=== PATIENT | female | born 1950 ===

== ENCOUNTER 2017-10-14 09:56 | Observation (INO) | payer OTHER, MEDICARE ==
--- NOTE | 2017-10-14 10:25 | EDPHY ---
H & P Stated Complaint: Pain in R lower leg/ankle x 1 wk;thinks it's her varicose veins Time Seen by Provider: 10/14/17 10:16 HPI/ROS: CHIEF COMPLAINT: Right leg pain and swelling HISTORY OF PRESENT ILLNESS: The patient is a 67-year-old female who comes to the emergency department complaining of right leg pain and swelling around the ankle. She 1st noticed some swelling on that side 1 week ago and saw her primary doctor Siva on Saturday. They decided to continue to monitor her symptoms. The patient states that it is got more swollen and more painful and is now erythematous. That is tender to the touch. It is slightly warm. She has a small abrasion on her webber. REVIEW OF SYSTEMS: Constitutional: denies: chills, fever, recent illness, recent injury EENTM: denies: blurred vision, double vision, nose congestion Respiratory: denies: cough, shortness of breath Cardiac: denies: chest pain, irregular heart rate, lightheadedness, palpitations Gastrointestinal/Abdominal: denies: abdominal pain, diarrhea, nausea, vomiting, blood streaked stools Genitourinary: denies: dysuria, frequency, hematuria, pain Musculoskeletal: See HPI Skin: See HPI Neurological: denies: headache, numbness, paresthesia, tingling, dizziness, weakness Hematologic/Lymphatic: denies: blood clots, easy bleeding, easy bruising Immunologic/allergic: denies: HIV/AIDS, transplant EXAM: GENERAL: Well-appearing, well-nourished and in no acute distress. HEAD: Atraumatic, normocephalic. EYES: Pupils equal round and reactive to light, extraocular movements intact, sclera anicteric, conjunctiva are normal. ENT: TMs normal, nares patent, oropharynx clear without exudates. Moist mucous membranes. NECK: Normal range of motion, supple without lymphadenopathy or JVD. LUNGS: Breath sounds clear to auscultation bilaterally and equal. No wheezes rales or rhonchi. HEART: Regular rate and rhythm without murmurs, rubs or gallops. ABDOMEN: Soft, nontender, normoactive bowel sounds. No guarding, no rebound. No masses appreciated. BACK: No CVA tenderness, no spinal tenderness, step-offs or deformities EXTREMITIES: 2+ edema right lower extremity, mild erythema and warmth consistent with venous insufficiency versus mild cellulitis NEUROLOGICAL: Cranial nerves II through XII grossly intact. Normal speech, normal gait. 5/5 strength, normal movement in all extremities, normal sensation PSYCH: Normal mood, normal affect. SKIN: See above Source: Patient Exam Limitations: No limitations - Personal History Current Tetanus Diphtheria and Acellular Pertussis (TDAP): Yes - Medical/Surgical History Hx Asthma: No Hx Chronic Respiratory Disease: No Hx Diabetes: No Hx Cardiac Disease: No Hx Renal Disease: No Hx Cirrhosis: No Hx Alcoholism: No Other PMH: varicose veins, "bad liver" - Family History Significant Family History: No pertinent family hx - Social History Smoking Status: Former smoker Alcohol Use: Sober Drug Use: None Constitutional: Initial Vital Signs Temperature (C) 37.2 C 10/14/17 09:58 Heart Rate 91 10/14/17 09:58 Respiratory Rate 18 10/14/17 09:58 Blood Pressure 132/80 H 10/14/17 09:58 O2 Sat (%) 94 10/14/17 09:58 O2 Delivery Mode Room Air Allergies/Adverse Reactions: nitrofurantoin [From Macrobid] Allergy (Intermediate, Verified 10/14/17 10:06) "gives me a really high temp" bacitracin [From Neosporin] Allergy (Mild, Verified 10/14/17 10:06) Rash bacitracin zinc [From Neosporin] Allergy (Mild, Verified 10/14/17 10:06) Rash benzalkonium chloride [From Neosporin] Allergy (Mild, Verified 10/14/17 10:06) Rash gramicidin D [From Neosporin] Allergy (Mild, Verified 10/14/17 10:06) Rash neomycin sulfate [From Neosporin] Allergy (Mild, Verified 10/14/17 10:06) Rash polymyxin B [From Neosporin] Allergy (Mild, Verified 10/14/17 10:06) Rash polymyxin B sulfate [From Neosporin] Allergy (Mild, Verified 10/14/17 10:06) Rash nitrofurantoin macrocrystalline [From Macrobid] Allergy (Verified 10/14/17 10:06 ) "gives me a really high temp" Home Medications: Medication Instructions Recorded Ursodiol [Actigall 300MG (*)] 1,200 mg PO DAILY 03/03/12 Diazepam [Valium 5 MG (*)] 5 mg PO DAILY PRN 10/14/17 Ferrous Sulfate [Ferrous Sulf 325 325 mg PO DAILY 10/14/17 MG (*)] Herbals/Supplements -Info Only 1 ea PO DAILY 10/14/17 Ranitidine HCl [Zantac] 300 mg PO DAILY PRN 10/14/17 buPROPion SR [Wellbutrin 150mg SR 150 mg PO DAILY 10/14/17 (*)] oxyCODONE IR [Oxycodone Ir (*)] 7.5 mg PO Q4HRS PRN 10/14/17 Medical Decision Making - Diagnostics Imaging Results: Imaging Impressions Extremity Venous Study 10/14/17 10:22 Impression: There is no sonographic evidence of deep or superficial vein thrombosis in the right lower extremity. Findings were discussed with GAGE BRUCE MD at 11:06 AM, on 10/14/2017. Imaging: Discussed imaging studies w/ conveyor man Radiologist ED Course/Re-evaluation: 11:20 a.m. I discussed the case with Nereida who will admit to the medical service requests cefazolin. The patient and friend agree with this plan. The patient does not have sepsis. Chemistry still pending. Differential Diagnosis: Partial list of the Differential diagnosis considered include but were not limited to; cellulitis, DVT and although unlikely based on the history and physical exam, I also considered injury, ischemia. - Data Points Laboratory Results: Laboratory Results 10/14/17 10:35 10/14/17 10:35 10/14/17 10/14/17 10/14/17 10:35 10:35 10:35 WBC 4.70 10^3/uL 10^3/uL (3.80-9.50) RBC 3.88 10^6/uL L 10^6/uL (4.18-5.33) Hgb 12.1 g/dL L g/dL (12.6-16.3) Hct 36.2 % L % (38.0-47.0) MCV 93.3 fL fL (81.5-99.8) MCH 31.2 pg pg (27.9-34.1) MCHC 33.4 g/dL g/dL (32.4-36.7) RDW 13.2 % % (11.5-15.2) Plt Count 98 10^3/uL L 10^3/uL (150-400) MPV 12.1 fL H fL (8.7-11.7) Neut % (Auto) 79.2 % H % (39.3-74.2) Lymph % (Auto) 9.6 % L % (15.0-45.0) [place] % (Auto) 10.2 % % (4.5-13.0) Eos % (Auto) 0.6 % % (0.6-7.6) Baso % (Auto) 0.2 % L % (0.3-1.7) Nucleat RBC Rel Count 0.0 % % (0.0-0.2) Absolute Neuts (auto) 3.72 10^3/uL 10^3/uL (1.70-6.50) Absolute Lymphs (auto) 0.45 10^3/uL L 10^3/uL (1.00-3.00) Absolute Monos (auto) 0.48 10^3/uL 10^3/uL (0.30-0.80) Absolute Eos (auto) 0.03 10^3/uL 10^3/uL (0.03-0.40) Absolute Basos (auto) 0.01 10^3/uL L 10^3/uL (0.02-0.10) Absolute Nucleated RBC 0.00 10^3/uL 10^3/uL (0-0.01) Immature Gran % 0.2 % % (0.0-1.1) Immature Gran # 0.01 10^3/uL 10^3/uL (0.00-0.10) PT 14.6 SEC SEC (12.0-15.0) INR 1.12 (0.83-1.16) APTT 24.4 SEC SEC (23.0-38.0) VBG Lactic Acid 1.0 mmol/L mmol/L (0.7-2.1) Sodium Potassium Chloride Carbon Dioxide Anion Gap BUN Creatinine Estimated GFR Glucose Calcium Total Bilirubin 10/14/17 10:35 WBC RBC Hgb Hct MCV MCH MCHC RDW Plt Count MPV Neut % (Auto) Lymph % (Auto) [place] % (Auto) Eos % (Auto) Baso % (Auto) Nucleat RBC Rel Count Absolute Neuts (auto) Absolute Lymphs (auto) Absolute Monos (auto) Absolute Eos (auto) Absolute Basos (auto) Absolute Nucleated RBC Immature Gran % Immature Gran # PT INR APTT VBG Lactic Acid Sodium 138 mEq/L mEq/L (134-144) Potassium 3.4 mEq/L L mEq/L (3.5-5.2) Chloride 100 mEq/L mEq/L (97-110) Carbon Dioxide 26 mEq/l mEq/l (22-31) Anion Gap 12 mEq/L mEq/L (8-16) BUN 8 mg/dL mg/dL (7-23) Creatinine 0.6 mg/dL mg/dL (0.6-1.0) Estimated GFR > 60 Glucose 109 mg/dL H mg/dL (70-100) Calcium 8.4 mg/dL L mg/dL (8.5-10.4) Total Bilirubin 1.2 mg/dL mg/dL (0.1-1.4) Medications Given: Discontinued Medications Hydromorphone HCl (Dilaudid) 0.5 mg IVP EDNOW ONE Stop: 10/14/17 11:17 Last Admin: 10/14/17 11:21 Dose: 0.5 mg Cefazolin Sodium/Dextrose (Ancef 1 Gm (Premix)) 50 mls @ 200 mls/hr IV EDNOW ONE PRN Reason: Protocol Stop: 10/14/17 11:33 Last Admin: 10/14/17 11:24 Dose: 50 mls Oxycodone HCl (Oxycodone Ir) 10 mg PO EDNOW ONE Stop: 10/14/17 11:46 Last Admin: 10/14/17 11:49 Dose: 10 mg Departure - Departure Disposition: [facility] Acute Clinical Impression: Cellulitis Qualifiers: Site of cellulitis: extremity Site of cellulitis of extremity: lower extremity Laterality: right Qualified Code(s): L03.115 - Cellulitis of right lower limb Condition: Fair
[2017-10-14 10:53] LABS: % IMMATURE GRANULYOCYTES 0.2 % (0.0-1.1); ABSOLUTE IMMATURE GRANULOCYTES 0.01 10^3/uL (0.00-0.10); ADD DIFF? NO; ADD MORPH? NO; ADD SCAN? NO; ATYPICAL LYMPHOCYTE FLAG 10 (0-99); FRAGMENT RBC FLAG 0 (0-99); HEMATOCRIT 36.2 % (38.0-47.0); HEMOGLOBIN 12.1 g/dL (12.6-16.3); LEFT SHIFT FLG 0 (0-99); LIPEMIA HEMOLYSIS FLAG 80 (0-99); MEAN CELL HEMOGLOBIN 31.2 pg (27.9-34.1); MEAN CELL HEMOGLOBIN CONCENTR. 33.4 g/dL (32.4-36.7); MEAN CELL VOLUME 93.3 fL (81.5-99.8); MEAN PLATELET VOLUME 12.1 fL (8.7-11.7); PLATELET CLUMPS FLAG 0 (0-99); PLATELET COUNT 98 10^3/uL (150-400); RED BLOOD CELL COUNT 3.88 10^6/uL (4.18-5.33); RED CELL DISTRIBUTION WIDTH 13.2 % (11.5-15.2)
[2017-10-14 11:03] LABS: APTT 24.4 SEC (23.0-38.0); INR 1.12 (0.83-1.16); PROTIME(PATIENT) 14.6 SEC (12.0-15.0)
[2017-10-14] MEDS ORDERED: HYDROmorphONE/DILAUDID 1 MG/ML INJ IVP ONE (11:16)
[2017-10-14 11:27] LABS: ANION GAP 12 mEq/L (8-16); BILIRUBIN,TOTAL 1.2 mg/dL (0.1-1.4); CALCIUM 8.4 mg/dL (8.5-10.4); CARBON DIOXIDE 26 mEq/l (22-31); CHLORIDE 100 mEq/L (97-110); CREATININE 0.6 mg/dL (0.6-1.0); GLOMERULAR FILTRATION RATE > 60; GLUCOSE 109 mg/dL (70-100); POTASSIUM 3.4 mEq/L (3.5-5.2); SODIUM 138 mEq/L (134-144)
[2017-10-14] MEDS ORDERED: oxyCODONE IR 5 MG TAB PO ONE (11:45)
[2017-10-14] MEDS ORDERED: DIAZEPAM 5 MG TAB PO PRN (13:24)
[2017-10-14] MEDS ORDERED: POTASSIUM CL 20 MEQ TAB PO ONE ×2 (13:25→18:00)
[2017-10-14] MEDS ORDERED: ONDANSETRON DISINTEGRATING 4 MG TAB PO PRN (13:34)
[2017-10-14] MEDS ORDERED: ONDANSETRON 4 MG/2 ML VIAL IVP PRN (13:34)
[2017-10-14] MEDS ORDERED: ACETAMINOPHEN 325 MG TAB PO PRN (13:34)
[2017-10-14] MEDS ORDERED: HYDROmorphONE/DILAUDID 1 MG/ML INJ IVP PRN (13:34)
[2017-10-14] MEDS ORDERED: HYDROmorphone HCL/NS/PF 0.4 MG/2 ML SYR IVP PRN (13:55)
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
[2017-10-14 15:33] LABS: ALBUMIN 3.2 g/dL (3.5-5.0); BILIRUBIN,TOTAL 1.1 mg/dL (0.1-1.4); BILIRUBIN-CONJUGATED 0.3 mg/dL (0.0-0.5); BILIRUBIN-UNCONJUGATED 0.8 mg/dL (0.0-1.1); TOTAL PROTEIN 5.7 g/dL (6.3-8.2)
[2017-10-14] MEDS: oxyCODONE IR 15 MG TAB PO PRN ×2 (15:51→20:56)
[2017-10-14] MEDS: ceFAZolin 2 GM/DEXTROSE 100 ML IV SCH ×2 (15:52→20:56)
[2017-10-14 23:40] LABS: COLOR YELLOW; LEUKOCYTE ESTERASE,URINE 3+ (NEGATIVE); NITRITE,URINE NEGATIVE (NEGATIVE)
[2017-10-14 23:47] LABS: RBC,URINE 15-25 /hpf (0-3); WBC,URINE 50-182 /hpf (0-3); YEAST PRESENT /hpf (NONE SEEN)
[2017-10-15] MEDS: ceFAZolin 2 GM/DEXTROSE 100 ML IV SCH ×2 (05:55→14:38)
[2017-10-15 06:02] LABS: % IMMATURE GRANULYOCYTES 0.9 % (0.0-1.1); ABSOLUTE IMMATURE GRANULOCYTES 0.03 10^3/uL (0.00-0.10); ADD DIFF? NO; ADD MORPH? NO; ADD SCAN? NO; ATYPICAL LYMPHOCYTE FLAG 10 (0-99); FRAGMENT RBC FLAG 0 (0-99); HEMATOCRIT 31.6 % (38.0-47.0); HEMOGLOBIN 10.5 g/dL (12.6-16.3); LEFT SHIFT FLG 0 (0-99); LIPEMIA HEMOLYSIS FLAG 80 (0-99); MEAN CELL HEMOGLOBIN 31.2 pg (27.9-34.1); MEAN CELL HEMOGLOBIN CONCENTR. 33.2 g/dL (32.4-36.7); MEAN CELL VOLUME 93.8 fL (81.5-99.8); PLATELET CLUMPS FLAG 0 (0-99); PLATELET COUNT 90 10^3/uL (150-400); RED BLOOD CELL COUNT 3.37 10^6/uL (4.18-5.33); RED CELL DISTRIBUTION WIDTH 13.3 % (11.5-15.2)
[2017-10-15 06:16] LABS: ALANINE AMINOTRANSFERASE 28 IU/L (9-52); ALBUMIN 2.6 g/dL (3.5-5.0); ALKALINE PHOSPHATASE 133 IU/L (38-126); ANION GAP 7 mEq/L (8-16); ASPARTATE AMINOTRANSFERASE 21 IU/L (14-46); BILIRUBIN,TOTAL 0.5 mg/dL (0.1-1.4); CARBON DIOXIDE 28 mEq/l (22-31); CHLORIDE 103 mEq/L (97-110); CREATININE 0.6 mg/dL (0.6-1.0); GLOMERULAR FILTRATION RATE > 60; GLUCOSE 85 mg/dL (70-100); POTASSIUM 3.5 mEq/L (3.5-5.2); SODIUM 138 mEq/L (134-144); TOTAL PROTEIN 4.7 g/dL (6.3-8.2)
[2017-10-15 08:10] VITALS: BP 124/73; PULSE 93; RESP 19; TEMP 97.9; O2SAT 91
[2017-10-15] MEDS: oxyCODONE IR 15 MG TAB PO PRN ×2 (08:32→13:16)
[2017-10-15] MEDS ORDERED: FAMOTIDINE 20 MG TAB PO PRN (09:00)
[2017-10-15] MEDS ORDERED: URSODIOL 300 MG CAP PO SCH (09:00)
[2017-10-15] MEDS ORDERED: buPROPion SR 150 MG TAB PO SCH (09:00)
[2017-10-15] MEDS ORDERED: FERROUS SULFATE 325 MG TAB PO SCH (09:00)
--- NOTE | 2017-10-15 16:33 | ASMTCASEMG ---
Type Of Residence What kind of residence do Answers: House you live in? Case Management Evaluation Functional: Able to Answers: Yes return Home with Prior Level of Function/Care Discharge Plan Comments Coordination Status Comments Notes: Patient discharging home having been transitioned from IV antibiotics tto orals. Patient able to discharge home Independent with no additional Case management needs apparent at this time. Date Signed: 10/15/2017 04:33 PM Electronically Signed By:MITA Juárez
--- NOTE | 2017-10-15 18:19 | ASDISCHSUM ---
Discharge Information Plan Status:Home with No Needs Medically Cleared to Leave:10/14/2017 Discharge Date:10/15/2017 04:43 PM CM D/C Disposition:Home, Routine, Self-Care ADT D/C Disposition:Home, Routine, Self-Care Projected Discharge Date:10/15/2017 05:00 PM Transportation at D/C:Family Discharge Delay Reason: Follow-Up Date:10/15/2017 05:00 PM Discharge Slot: Final Diagnosis:Cellulitis Placement Information Patient Contact Information Contact Name:NPPTPT Relationship:Sister Address:[address] [facility] City:[place] Alternate Phone: State/Zip Code:[place] [address] Email: Financial Information Financial Class: Primary Plan Desc:MEDICARE OUTPATIENT Primary Plan Number:[id number] Secondary Plan Desc:[employer]/MDR SUPPLEMENT Secondary Plan Number:[id number] Assessment Information [facility] Initial CM Assessment Type Of Residence What kind of residence do Answers: House you live in? Case Management Evaluation Functional: Able to Answers: Yes return Home with Prior Level of Function/Care Discharge Plan Comments Coordination Status Comments Notes: Patient discharging home having been transitioned from IV antibiotics tto orals. Patient able to discharge home Independent with no additional Case management needs apparent at this time. Date Signed: 10/15/2017 04:33 PM Electronically Signed By:MITA Juárez Intervention Information
--- NOTE | 2017-10-16 02:14 | GDS ---
[f rep st] DISCHARGE SUMMARY DISCHARGE DIAGNOSES: 1. Right lower extremity cellulitis. 2. Primary biliary cirrhosis. 3. Chronic pain on chronic continuous opioids. 4. Hypokalemia, resolved. HISTORY: For details, please see dictated history and physical dated October 14, 2017. In brief, batsheva shepherd patient is a 67-year-old female with multiple medical problems, who presented to the emergency dep artment with 1 week of right ankle swelling. She was admitted to the hospital for IV antibiotics for cellulitis. HOSPITAL COURSE: Patient was admitted to the med/surg unit. She was treated with IV Ancef. The day, her condition had markedly improved with significant decrease in erythema and edema. She was ambulating safely. She has had no fevers and no leukocytosis. She is likely safe to transition to oral Keflex for continued outpatient treatment. DISPOSITION: Patient is discharged home in stable condition. FOLLOWUP: Dr. Kate Paniagua, primary care, in 2-3 days to recheck cellulitis. DISCHARGE MEDICATIONS: Please see [facility] for completed outpatient medication list. New medication s on discharge include Keflex 500 mg p.o. q.6 hours, #28, no refills. /[id number]/MODL
== END 2017-10-15 16:43 | disposition home or self-care (01) ==
LOC: F1N 12:15
PROVIDERS: ADMIT Student in an Organized Health Care Education/Training Program; ATTEND Hospitalist
DX: L03.115 Cellulitis of right lower limb (principal); K74.3 Primary biliary cirrhosis; G89.29 Other chronic pain; E87.6 Hypokalemia; F32.9 Major depressive disorder, single episode, unspecified; F41.9 Anxiety disorder, unspecified; K21.9 Gastro-esophageal reflux disease without esophagitis; H54.8 Legal blindness, as defined in USA; Z79.891 Long term (current) use of opiate analgesic; Z90.710 Acquired absence of both cervix and uterus
CPT/HCPCS: 93971; 97161; G0378; G8978; G8979; G8980; J0690; J1170; 96365

== ENCOUNTER 2017-10-25 17:15 | Emergency (ER) | payer OTHER, MEDICARE ==
--- NOTE | 2017-10-25 18:24 | EDPHY ---
H & P Stated Complaint: RIGHT LEG CELLULITIS NOT RESOLVING Time Seen by Provider: 10/25/17 18:04 HPI/ROS: CHIEF COMPLAINT: Ongoing right leg erythema HISTORY OF PRESENT ILLNESS: The patient presents to the ED for evaluation of ongoing mild right leg erythema. The patient was hospitalized approximately 2 weeks ago 1 day of IV antibiotics. She was discharged home with Keflex. At some point time Bactrim was added as an outpatient. She has been following up with her primary care provider. Given the presence of ongoing mild erythema and tenderness she was referred to the ED for further evaluation. She denies any fever. She denies any history of fall or trauma. The patient did have an unremarkable lower extremity ultrasound 10 days ago. REVIEW OF SYSTEMS: A comprehensive 10 point review of systems is otherwise negative aside from elements mentioned in the history of present illness. Source: Patient Exam Limitations: No limitations - Personal History Current Tetanus/Diphtheria Vaccine: Yes Current Tetanus Diphtheria and Acellular Pertussis (TDAP): Yes - Medical/Surgical History Hx Asthma: No Hx Chronic Respiratory Disease: No Hx Diabetes: No Hx Cardiac Disease: No Hx Renal Disease: No Hx Cirrhosis: No Hx Alcoholism: No Hx HIV/AIDS: No Hx Splenectomy or Spleen Trauma: No Other PMH: varicose veins, "bad liver (primary biliary cirrhosis; legally blind ; cataract surgery, again in October 2017; O2 at night, former smoker, 20 pack year history, CELLULITIS 10/20 - Social History Smoking Status: Former smoker - Physical Exam Exam: General Appearance: Alert, no distress Eyes: Pupils equal and round no pallor or injection ENT, Mouth: Mucous membranes moist Respiratory: There are no retractions, lungs are clear to auscultation Cardiovascular: Regular rate and rhythm Gastrointestinal: Abdomen is soft and nontender, no masses, bowel sounds normal Neurological: A&O, normal motor function, normal sensory exam, normal cranial nerves Skin: Mild erythematous changes noted right ankle improved from prior line of demarcation, mild tenderness to palpation along the ankle and foot Musculoskeletal: Neck is supple nontender Extremities: symmetrical, full range of motion Constitutional: Initial Vital Signs Temperature (C) 36.8 C 10/25/17 17:20 Heart Rate 89 10/25/17 17:20 Respiratory Rate 15 10/25/17 17:20 Blood Pressure 129/61 H 10/25/17 17:20 O2 Sat (%) 94 10/25/17 17:20 O2 Delivery Mode Room Air Allergies/Adverse Reactions: nitrofurantoin [From Macrobid] Allergy (Intermediate, Verified 10/25/17 17:18) "gives me a really high temp" bacitracin [From Neosporin] Allergy (Mild, Verified 10/25/17 17:18) Rash bacitracin zinc [From Neosporin] Allergy (Mild, Verified 10/25/17 17:18) Rash benzalkonium chloride [From Neosporin] Allergy (Mild, Verified 10/25/17 17:18) Rash gramicidin D [From Neosporin] Allergy (Mild, Verified 10/25/17 17:18) Rash neomycin sulfate [From Neosporin] Allergy (Mild, Verified 10/25/17 17:18) Rash polymyxin B [From Neosporin] Allergy (Mild, Verified 10/25/17 17:18) Rash polymyxin B sulfate [From Neosporin] Allergy (Mild, Verified 10/25/17 17:18) Rash nitrofurantoin macrocrystalline [From Macrobid] Allergy (Verified 10/25/17 17:18 ) "gives me a really high temp" Home Medications: Medication Instructions Recorded Ursodiol [Actigall 300MG (*)] 1,200 mg PO DAILY 03/03/12 Diazepam [Valium 5 MG (*)] 5 mg PO DAILY PRN 10/14/17 Ferrous Sulfate [Ferrous Sulf 325 325 mg PO DAILY 10/14/17 MG (*)] Herbals/Supplements -Info Only 1 ea PO DAILY 10/14/17 Ranitidine HCl [Zantac] 300 mg PO DAILY PRN 10/14/17 buPROPion SR [Wellbutrin 150mg SR 150 mg PO DAILY 10/14/17 (*)] oxyCODONE IR [Oxycodone Ir (*)] 7.5 mg PO Q4HRS PRN 10/14/17 Cephalexin [Keflex (*)] 500 mg PO Q6H #28 cap 10/15/17 Cephalexin [Keflex] 500 mg PO QID #28 cap 10/25/17 Medical Decision Making ED Course/Re-evaluation: The patient presents to the ED with mild persistent erythema while taking Keflex and Bactrim for mild cellulitis. The patient is nontoxic and well- appearing. She has no leukocytosis. She has a normal sed rate, CRP and pro- calcitonin level. At this point time I do not feel the patient needs to be admitted to the hospital. I would recommend that the patient continue her oral antibiotics as prescribed. The patient could certainly follow up with infectious disease at this point time for a recheck. Differential Diagnosis: Differential diagnosis considered includes cellulitis, septic arthritis, abscess - Data Points Laboratory Results: Laboratory Results 10/25/17 18:25 10/25/17 18:25 10/25/17 10/25/17 18:25 18:25 WBC 4.76 10^3/uL 10^3/uL (3.80-9.50) RBC 4.44 10^6/uL 10^6/uL (4.18-5.33) Hgb 13.6 g/dL g/dL (12.6-16.3) Hct 41.3 % % (38.0-47.0) MCV 93.0 fL fL (81.5-99.8) MCH 30.6 pg pg (27.9-34.1) MCHC 32.9 g/dL g/dL (32.4-36.7) RDW 13.4 % % (11.5-15.2) Plt Count 175 10^3/uL 10^3/uL (150-400) MPV 11.4 fL fL (8.7-11.7) Neut % (Auto) 69.5 % % (39.3-74.2) Lymph % (Auto) 20.6 % % (15.0-45.0) [place] % (Auto) 5.7 % % (4.5-13.0) Eos % (Auto) 3.6 % % (0.6-7.6) Baso % (Auto) 0.4 % % (0.3-1.7) Nucleat RBC Rel Count 0.0 % % (0.0-0.2) Absolute Neuts (auto) 3.31 10^3/uL 10^3/uL (1.70-6.50) Absolute Lymphs (auto) 0.98 10^3/uL L 10^3/uL (1.00-3.00) Absolute Monos (auto) 0.27 10^3/uL L 10^3/uL (0.30-0.80) Absolute Eos (auto) 0.17 10^3/uL 10^3/uL (0.03-0.40) Absolute Basos (auto) 0.02 10^3/uL 10^3/uL (0.02-0.10) Absolute Nucleated RBC 0.00 10^3/uL 10^3/uL (0-0.01) Immature Gran % 0.2 % % (0.0-1.1) Immature Gran # 0.01 10^3/uL 10^3/uL (0.00-0.10) ESR 13 MM/HR MM/HR (0-30) Sodium 138 mEq/L mEq/L (134-144) Potassium 4.4 mEq/L mEq/L (3.5-5.2) Chloride 101 mEq/L mEq/L (97-110) Carbon Dioxide 25 mEq/l mEq/l (22-31) Anion Gap 12 mEq/L mEq/L (8-16) BUN 11 mg/dL mg/dL (7-23) Creatinine 0.8 mg/dL mg/dL (0.6-1.0) Estimated GFR > 60 Glucose 84 mg/dL mg/dL (70-100) Calcium 9.0 mg/dL mg/dL (8.5-10.4) C-Reactive Protein 6.8 mg/L mg/L (<10.0) Prolactin 15.5 ng/mL ng/mL (3.0-18.6) Departure - Departure Disposition: Home, Routine, Self-Care Clinical Impression: Cellulitis Condition: Good Instructions: Cellulitis (ED) Additional Instructions: 1. Please continue Keflex for additional 1 week. 2. Please have your primary care provider referred to infectious disease for any ongoing mild symptoms. 3. Please return to the ED for markedly worsening pain, redness, fever or other concerns. Referrals: KAUR ESCALANTE [Medical Doctor] - As per Instructions
[2017-10-25 18:33] LABS: PLATELET COUNT 175 10^3/uL (150-400)
[2017-10-25 19:50] VITALS: BP 135/80; PULSE 76; RESP 18; TEMP 96.8; O2SAT 95
== END 2017-10-25 19:50 | disposition home or self-care (01) ==
DX: L03.115 Cellulitis of right lower limb (principal); Z87.891 Personal history of nicotine dependence